=== PATIENT | female | born 1990 | race Caucasian/White ===

== ENCOUNTER 2023-05-24 04:57 | Inpatient (IN) | payer OTHER ==
[~2023-05-24] VITALS: Ht 160 cm; Wt 162.5 kg
[~2023-05-24 04:57] MED LIST: ALBU18HF12 IH; ALBU2.5V39 NEB; ASPI-1192 PO; SUMA25TA15 PO
[2023-05-24 05:23] LABS: BASOPHILS % (AUTO) 0.3 % (0.0-2.0); EOSINOPHILS % (AUTO) 1.1 % (1.0-6.0); HEMATOCRIT 35.3 % (36-46); HEMOGLOBIN 11.8 g/dL (12.0-16.0); LYMPHOCYTES # (AUTO) 2.5 K/uL (1.0-4.8); MEAN CORPUSCULAR HGB CONC 33.4 G/dL (31.0-37.0); MEAN CORPUSCULAR VOLUME 87 fL (80-100); MONOCYTES # (AUTO) 0.7 K/uL (0.1-1.0); MONOCYTES % (AUTO) 6.8 % (2.0-9.0); NEUTROPHILS # (AUTO) 6.6 K/uL (1.8-7.7); NEUTROPHILS % (AUTO) 66.8 % (40.0-70.0); PLATELET COUNT (AUTO) 439 K/uL (150-450); RED BLOOD CELL COUNT(AUTO) 4.06 MIL/uL (4.00-5.20); RED CELL DISTRIBUTION WIDTH 13.9 % (11.5-14.5); WHITE BLOOD COUNT (AUTO) 9.9 K/uL (4.5-11.0)
[2023-05-24 05:32] LABS: ANION GAP 7 mmol/L (8-16); CALCIUM, TOTAL 8.7 mg/dL (8.8-10.5); CARBON DIOXIDE 29 mmol/L (22-29); CHLORIDE 102 mmol/L (98-107); CREATININE 0.81 mg/dL (0.60-1.30); GLOMERULAR FILTR. RATE CALC > 60 mL/min (>60); GLUCOSE,RANDOM 90 mg/dL (70-110); POTASSIUM 3.7 mmol/L (3.5-5.1); SODIUM SERUM 138 mmol/L (136-145); UREA NITROGEN, BLOOD 14 mg/dL (7-18)
[2023-05-24 05:42] LABS: ALANINE AMINOTRANSFERASE 33 U/L (12-78); ALBUMIN 3.5 g/dL (3.4-5.0); ALKALINE PHOSPHATASE 80 U/L (46-116); ASPARTATE AMINOTRANSFERASE 21 U/L (15-37); BILIRUBIN,TOTAL 0.5 mg/dL (0.1-1.0); TOTAL PROTEIN, SERUM 8.1 g/dL (6.4-8.2)
[2023-05-24 06:01] LABS: LIPASE 26 U/L (16-77)
[2023-05-24 06:08] LABS: LACTIC ACID 0.8 mmol/L (0.4-2.0)
[2023-05-24 07:10] LABS: APPEARANCE,URINE HAZY (CLEAR); BILIRUBIN,URINE NEGATIVE (NEGATIVE); COLOR,URINE YELLOW (YELLOW); GLUCOSE, URINE (UA) TRACE mg/dL (NEGATIVE); KETONES,URINE NEGATIVE (NEGATIVE); LEUKOCYTE ESTERASE ,URINE SMALL (NEGATIVE); NITRATE,URINE NEGATIVE (NEGATIVE); OCCULT BLOOD,URINE LARGE (NEGATIVE); PH,URINE 5.5 (5.0-8.0); PROTEIN,URINE 30-70 mg/dL (NEGATIVE); SPECIFIC GRAVITIY, URINE 1.041 (1.003-1.030); UROBILINOGEN,URINE <=1.0 mg/dL (<=1.0)
[2023-05-24 07:43] LABS: BACTERIA,URINE Many /HPF (None Seen)
[2023-05-24 07:44] LABS: SQUAMOUS EPITHELIAL CELL,UR Moderate /LPF (None Seen)
[2023-05-24] MEDS ORDERED: ZOLPIDEM TARTRATE 5 MG TABLET PO PRN (08:00)
[2023-05-24] MEDS ORDERED: MAGNESIUM HYDROXIDE SUSPENSION 30 ML UDCUP PO PRN (08:00)
[2023-05-24] MEDS: HEPARIN SODIUM,PORCINE 5,000 UNITS/ML VIAL SQ SCH (08:18)
[2023-05-24] MEDS: ACETAMINOPHEN 325 MG TABLET PO PRN (08:18)
[2023-05-24] MEDS: CefTRIAXone 1 GM/DEXTROSE 50 ML IV SCH (08:19)
[2023-05-24] MEDS: FAMOTIDINE 20 MG TABLET PO SCH (08:57)
[2023-05-24 17:24] LABS: COVID AG,FIA SOURCE NASAL SWAB
[2023-05-24 17:50] LABS: SARS-COV2 (COVID) ANTIGEN,FIA Negative (Negative)
[2023-05-24] MEDS: ONDANSETRON HCL 4 MG/2 ML VIAL IVP PRN (19:14)
[2023-05-24] MEDS: KETOROLAC TROMETHAMINE 15 MG/ML VIAL IVP ONE (19:14)
[2023-05-24 20:16] VITALS: BP 120/73; PULSE 61; RESP 20; TEMP 98.3
[2023-05-25 04:31] VITALS: BP 108/59; PULSE 58; RESP 18; TEMP 97.8
[2023-05-25 07:52] VITALS: BP 102/62; PULSE 60; RESP 18; TEMP 98.3
[2023-05-25] MEDS ORDERED: SODIUM CHLORIDE 0.9% 250 ML IV ONE (08:59)
[2023-05-25] MEDS ORDERED: CIPR250T26 PO (10:36)
[2023-05-25] MEDS ORDERED: ACET-784 PO (10:36)
[2023-05-25] MEDS ORDERED: MAGN-169 PO (10:37)
[2023-05-25] MEDS ORDERED: CIPROFLOXACIN HCL 250 MG TABLET PO SCH (21:00)
== END 2023-05-25 15:40 | DRG 690 ==
LOC: EMS 04:58 → 6S 18:34
PROVIDERS: ADMIT Internal Medicine; ATTEND Internal Medicine
DX: N39.0 Urinary tract infection, site not specified (principal); Z68.44 Body mass index [BMI] 60.0-69.9, adult; E44.0 Moderate protein-calorie malnutrition; G47.33 Obstructive sleep apnea (adult) (pediatric); Z20.822 Contact with and (suspected) exposure to COVID-19; E66.01 Morbid (severe) obesity due to excess calories; J45.909 Unspecified asthma, uncomplicated; F41.1 Generalized anxiety disorder; G43.909 Migraine, unspecified, not intractable, without status migrainosus; Z88.0 Allergy status to penicillin; Z91.018 Allergy to other foods; Z90.49 Acquired absence of other specified parts of digestive tract
CPT/HCPCS: 74176; 80053; 81001; 83605; 83690; 84703; 85025; 87040; 87086; 87186; 99285; J0696; J1644; J1885; J2405; J7050